=== PATIENT | female | born 1975 | race Caucasian/White ===

== ENCOUNTER 2017-05-13 05:25 | Outpatient (CLI) | payer BC ==
[~2017-05-13] VITALS: Ht 157.5 cm; Wt 71.9 kg
[2017-05-13 06:10] VITALS: Ht 157.5 cm; Wt 71.9 kg
[2017-05-13 06:11] VITALS: BP 122/77; PULSE 86
[2017-05-13 06:36] LABS: ADD UMIC YES; UR ASCORBIC ACID NEGATIVE (NEGATIVE); UR BILIRUBIN (Dip) NEGATIVE (NEGATIVE); UR BLOOD (Dip) 1+ mg/dL (NEGATIVE); UR CLARITY CLEAR (CLEAR); UR COLOR STRAW (YELLOW); UR GLUCOSE (Dip) NEGATIVE (NEGATIVE); UR KETONES (Dip) NEGATIVE (NEGATIVE); UR LEUKOCYTE ESTERASE (Dip) TRACE Leu/ul (NEGATIVE); UR NITRITE (Dip) NEGATIVE (NEGATIVE); UR RBC 0 /HPF (0-5); UR SPECIFIC GRAVITY (Dip) 1.006 (1.003-1.030); UR TOTAL PROTEIN (Dip) NEGATIVE (NEGATIVE); UR UROBILINOGEN (Dip) NEGATIVE (NEGATIVE)
--- NOTE | 2017-05-13 06:38 | RADRPT ---
PROCEDURE: Limited OB ultrasound CLINICAL INDICATION: Vaginal bleeding TECHNIQUE: Sonographic evaluation to assess the cervical length was performed. Transabdominal mina ging of the gravid uterus was performed. COMPARISON: No prior exam is available for comparison. FINDINGS: There is a single live intrauterine with cardiac activity, with a heart rate o f 148 bpm. position is cephalic. The placenta is anterior. The cervix is closed with a sarah beth th of 4.2 cm. IMPRESSION: The cervix is closed with a length of 4.2 cm. RPTAT: HH .Silva Tapia MD, MD Date Time Electronically viewed and signed by .Silva Tapia MD, on 05/13/2017 06:38 .G/
[2017-05-13 06:39] LABS: BASOPHIL # 0.1 10^3/ul (0.0-0.1); BASOPHILS % 0.5 % (0.0-2.0); EOSINOPHILS # 0.2 10^3/ul (0.0-0.5); EOSINOPHILS % 1.4 % (0.0-7.0); HEMATOCRIT 33.7 % (37.0-47.0); HEMOGLOBIN 11.6 g/dl (12.0-16.0); LYMPHOCYTES # 2.6 10^3/ul (0.8-2.9); LYMPHOCYTES % 24.7 % (15.0-51.0); MEAN CORPUSCULAR HEMOGLOBIN 31.4 pg (29.0-33.0); MEAN CORPUSCULAR HGB CONC 34.4 g/dl (32.0-37.0); MEAN CORPUSCULAR VOLUME 91.1 fl (82.0-101.0); MEAN PLATELET VOLUME 9.9 fl (7.4-10.4); MONOCYTE # 0.8 10^3/ul (0.3-0.9); MONOCYTES % 7.9 % (0.0-11.0); NEUTROPHILS % 63.1 % (39.0-77.0); PLATELET COUNT 250 10^3/UL (140-415); RED CELL DISTRIBUTION WIDTH 13.2 % (11.5-14.5); WHITE BLOOD COUNT 10.6 10^3/ul (4.8-10.8)
[2017-05-13] MEDS ORDERED: FERR325C PO (06:40)
[2017-05-13] MEDS ORDERED: PRENAT PO (06:40)
--- NOTE | 2017-05-13 08:22 | TRIAGE ---
OB Triage Datetime Report Generated by CPN: 05/13/2017 08:22 Datetime: 05/13/2017 07:30 Monitor Mode: External Resting Tone [place]: Relaxed Pain Assessment Pain Presence: None/Denies Datetime: 05/13/2017 07:00 Labor Evaluation Frequency: 0 Monitor Mode: External Duration (sec)2399: 0 Pattern: Normal: <= 5 Contractions in 10 Minutes Datetime: 05/13/2017 06:15 Labor Evaluation Frequency: NONE Monitor Mode: External Duration (sec)2399: NONE Pattern: Normal: <= 5 Contractions in 10 Minutes Resting Tone [place]: Relaxed Contraction Comments: ABD SOFT UPON PALPATION Heart Rate FHR Baseline Rate: 140 FHR Baseline Changes: No Baseline Change Variability: Moderate 6-25 bpm Comments: APPROPRIATE FOR GA Datetime: 05/13/2017 05:58 Stage of : OB Triage Datetime: 05/13/2017 05:44 Stage of : OB Triage Assessment Type: Triage Maternal Assessment Level of Consciousness: Fully Conscious Headache: Denies Blurred Vision: No Respiratory Effort: Unlabored; Regular Rhythm; Equal Expansion Nausea/Vomiting: Denies RUQ Epigastric Pain: Denies Facial Edema: None Fall Risk Assessment History of Falling: (0) No Secondary Diagnosis: (0) No Ambulatory Aid: (0) Bedrest/Nurse Assist IV Therapy: (0) No Gait: (0) Normal/Bedrest/Immobile Mental Status: (0) Oriented to Own Ability Fall Score: 0 Fall Risk Score Definition: No Risk: No action required Datetime: 05/13/2017 05:42 Time of Arrival: 05/13/2017 05:20 EGA: 21.1 Arrived By: Wheelchair Arrived From: Home Chief Complaint: SPOTTING (INTERCOURSE IN THE LAST 24HRS) Movement: Present Contractions: Denies/Absent Rupture of Membranes: Denies Vaginal Bleeding: Scant Vaginal Discharge: Denies Recent Sexual Intercouse: Yes Abdominal Trauma: Not Applicable Patient Complaints: Other Time Provider Notified: 05/13/2017 05:35 Provider Notified: BROCK Initial Plan: FHT, CALL OB Datetime: 05/13/2017 05:35 Stage of : OB Triage
--- NOTE | 2017-05-13 09:23 | PN ---
Triage Information Date/Time 05/13/2017 Reason for visit: Weeks of Gestation 21 weeks and 1 day /Para G 3P2 Diabetes: none Hypertention: none Additional information 41 years old female with IUP at 21 weeks and 1 days With care with Dr. Whiting presented to triage with complaint of postcoital bleeding. Patient denies any uterine contractions or decreased movement. Denies any other complaints. Her postcoital bleeding resolved when she was in triage. She denied any other episodes of bleeding after she presented observed in triage. Objective Vital Signs Date Time Temp Pulse Resp B/P Pulse Ox O2 Delivery O2 Flow Rate FiO2 05/13/17 06:11 98.3 86 122/77 Room Air Heart Rate: 120's Contractions: None Exam Const: [XOXOXO] Head: [Atraumatic] Abd: [Soft, non tender, non distended. Normal bowel sounds] Skin: [No petechiae or rashes] Back: [No midline or flank tenderness] Results/Medications Result Diagram: 05/13/17 0609 Results 24 hrs Laboratory Tests Test 05/13/17 05:52 05/13/17 06:09 Urine Color STRAW Urine Clarity CLEAR Urine pH 7.0 Urine Specific [place] 1.006 Urine Ketones NEGATIVE Urine Nitrite NEGATIVE Urine Bilirubin NEGATIVE Urine Urobilinogen NEGATIVE Urine Leukocyte Esterase TRACE A Urine Microscopic RBC 0 Urine Microscopic WBC 0 Urine Hemoglobin 1+ H Urine Glucose NEGATIVE Urine Total Protein NEGATIVE White Blood Count 10.6 Red Blood Count 3.70 L Hemoglobin 11.6 L Hematocrit 33.7 L Mean Corpuscular Volume 91.1 Mean Corpuscular Hemoglobin 31.4 Mean Corpuscular Hemoglobin Concent 34.4 Red Cell Distribution Width 13.2 Platelet Count 250 Mean Platelet Volume 9.9 Neutrophils % 63.1 Lymphocytes % 24.7 Monocytes % 7.9 Eosinophils % 1.4 Basophils % 0.5 Nucleated Red Blood Cells % 0.0 Neutrophils # (Manual) 6.7 Lymphocytes # 2.6 Monocytes # 0.8 Eosinophils # 0.2 Basophils # 0.1 Nucleated Red Blood Cells # 0.0 Imaging Results PROCEDURE: Limited OB ultrasound CLINICAL INDICATION: Vaginal bleeding TECHNIQUE: Sonographic evaluation to assess the cervical length was performed. Transabdominal imaging of the gravid uterus was performed. COMPARISON: No prior exam is available for comparison. FINDINGS: There is a single live intrauterine with cardiac activity, with a heart rate of 148 bpm. position is cephalic. The placenta is anterior. The cervix is closed with a length of 4.2 cm. IMPRESSION: The cervix is closed with a length of 4.2 cm. RPTAT: HH Disposition: Discharge Assessment/Plan IUP at 21 weeks and 1 dayPostcoital bleeding. Resolved. Patient had been observed in the triage for a couple hours. Ultrasound did not show any evidence of previa or abruption. Patient denies any symptoms and had no bleeding during observation. Cervix is long and closed. Patient will be discharged home with a strict labor precaution and follow-up with primary OB within 24-48 hours. Strict labor precautions discussed with the patient. YEISON LINDSAY MD May 13, 2017 09:23
== END 2017-05-13 08:05 | disposition home or self-care (01) ==
LOC: OBT 05:25 → L-D 05:25 → OBT 08:05
PROVIDERS: ATTEND Obstetrics & Gynecology
DX: O26.852 Spotting complicating pregnancy, second trimester (principal); Z3A.21 21 weeks gestation of pregnancy
CPT/HCPCS: 36415; 76817; 81001; 85025; 86850; 86900; 86901; Z7500; G0463

== ENCOUNTER 2017-08-29 05:18 | Inpatient (IN) | payer BC ==
[~2017-08-29] VITALS: Ht 157.5 cm; Wt 75.1 kg
[~2017-08-29 05:18] MED LIST: FERR325C PO; PRENAT PO
[2017-08-29 06:47] VITALS: Ht 157.5 cm; Wt 75.1 kg
[2017-08-29] MEDS ORDERED: BUTORPHANOL 2 MG INJ IV PRN (07:00)
[2017-08-29] MEDS ORDERED: MISOPROSTOL 200 MCG TAB PR PRN (07:00)
[2017-08-29] MEDS ORDERED: AMPICILLIN 2 GM/NS (PMX) 100 ML IV ONE (07:00)
[2017-08-29] MEDS ORDERED: IBUPROFEN 600 MG TAB PO PRN (07:00)
[2017-08-29] MEDS ORDERED: LIDOCAINE 1% (MPF) 30 ML INJ INJ PRN (07:00)
[2017-08-29] MEDS ORDERED: OXYCODONE/ACETAMINOPHEN (5/325) TAB PO PRN (07:00)
[2017-08-29] MEDS ORDERED: OXYTOCIN 30 UNITS/LR 500 ML IV SCH ×3 (07:00→18:40)
[2017-08-29] MEDS ORDERED: CARBOPROST 250 MCG INJ IM PRN (07:00)
[2017-08-29] MEDS ORDERED: METHYLERGONOVINE 0.2 MG INJ IM PRN (07:00)
[2017-08-29] MEDS ORDERED: OXYTOCIN 30 UNITS/LR 500 ML IV PRN (07:00)
[2017-08-29] MEDS: LACTATED RINGER'S 1,000 ML IV SCH ×3 (07:38→11:17)
[2017-08-29 07:59] LABS: BASOPHIL # 0.1 10^3/ul (0.0-0.1); BASOPHILS % 0.6 % (0.0-2.0); EOSINOPHILS # 0.1 10^3/ul (0.0-0.5); EOSINOPHILS % 0.9 % (0.0-7.0); HEMATOCRIT 35.8 % (37.0-47.0); HEMOGLOBIN 12.5 g/dl (12.0-16.0); LYMPHOCYTES # 2.1 10^3/ul (0.8-2.9); LYMPHOCYTES % 15.7 % (15.0-51.0); MEAN CORPUSCULAR HEMOGLOBIN 31.6 pg (29.0-33.0); MEAN CORPUSCULAR HGB CONC 34.9 g/dl (32.0-37.0); MEAN CORPUSCULAR VOLUME 90.6 fl (82.0-101.0); MEAN PLATELET VOLUME 10.3 fl (7.4-10.4); MONOCYTES % 7.3 % (0.0-11.0); NEUTROPHIL # 9.7 10^3/ul (1.6-7.5); NEUTROPHILS % 72.5 % (39.0-77.0); PLATELET COUNT 233 10^3/UL (140-415); RED BLOOD COUNT 3.95 10^6/ul (4.20-5.40); RED CELL DISTRIBUTION WIDTH 13.2 % (11.5-14.5); WHITE BLOOD COUNT 13.4 10^3/ul (4.8-10.8)
[2017-08-29 08:13] LABS: INR 0.91; PROTIME 12.3 Sec (11.9-14.9)
[2017-08-29 08:14] LABS: PARTIAL THROMBOPLASTIN TIME 25.7 Sec (25.0-35.0)
[2017-08-29 08:30] LABS: BARBITURATES Negative (NEGATIVE); BENZODIAZEPINES Negative (NEGATIVE); CANNABINOIDS Negative (NEGATIVE); COCAINE Negative (NEGATIVE); OPIATES Negative (NEGATIVE)
[2017-08-29] MEDS ORDERED: FENTAnyl 2MCG/ML-ROPIV 0.2% 100 ML ONE (08:42)
[2017-08-29] MEDS ORDERED: NALOXONE (0.4 MG/ML) INJ IV PRN (10:30)
[2017-08-29] MEDS ORDERED: ONDANSETRON 4 MG INJ IV PRN ×2 (10:30→19:00)
[2017-08-29] MEDS ORDERED: DIPHENHYDRAMINE 50 MG INJ IV PRN (10:30)
[2017-08-29] MEDS ORDERED: FENTAnyl 2MCG/ML-ROPIV 0.2% 100 ML BAG EPI SCH (10:30)
[2017-08-29] MEDS ORDERED: AMPICILLIN 1 GM/NS (PMX) 50 ML IV SCH (11:00)
--- NOTE | 2017-08-29 15:17 | LDN ---
Date/Time of Note Date/Time of Note DATE: 08/29/17 TIME: 15:14 Delivery Summary Normal spontaneous vaginal delivery of a baby boy from OA position shoulders delivered with no difficulty rest of the baby's body followed.. Cord clamped after stopped pulsation. Placenta is spontaneous expulsion inspected complete. Perineovaginal inspection no laceration. Estimated blood loss 250 cc. Weeks of Gestation 36 weeks 4 day Placenta Delivered: Spontaneously Meconium: none Episiotomy: No Laceration repair: None Anesthesia type: Epidural Sponge & Needle done & correct: Yes All needle counts correct: Yes Any foreign bodies felt in the: No Problems: Delivery Information Sex Infant Sex: male Apgars 1 Minute: 9 5 Minute: 9 Suctioning Nose & mouth suctioned at emiliano: Yes Delee suction performed: No Umbilical Cord Umbilical cord with: 3 Vessels Cord presentations: no nuchal cord Nuchal cord present X: 1 Cord Blood was obtained: Yes QUENTIN GARCIA MD Aug 29, 2017 15:17
--- NOTE | 2017-08-29 15:31 | HP ---
Date/Time of Note Date/Time of Note DATE: 08/29/17 TIME: 15:17 OB - History Hx of Present Free Text/Dictation 41 years female EDC September 22, 2017 admitted at 36 weeks and 4 days to the hospital with the complaint of premature rupture of membrane and early contractions, requiring labor, augmentation pelvic examination on admission cervix 4 cm dilated 90% effaced vertex at -1 station, heart category 1 Chief Complaint: Premature rupture of membrane early labor Estimated Due Date: Aug 22, 2017 : 3 Para: 2 Care: Good Care Ultrasounds: Normal mid trimester US Obstetrical Complications: None Medical Complications: None Past Family/Social History * Past Medical, Surgical, Family and Obstetric Histories reviewed from chart. Rubella: immune RPR/VDRL: Negative GBS Status: Negative HBsAG: Negative OB Admission Exam Physical Exam HEENT: WNL Lungs: Clear, Equal Abdomen: WNL Extremities: Normal Cervical Dilatation: 4cm Effacement: 100% Station: -1 Membranes: Ruptured Amniotic Fluid: Clear Accelerations: Accelerations Present Decelerations: No Decelerations Varibility: Moderate Contractions on Admission: >10 Minutes Apart Intensity: Mild Last 72 hours Lab Results CBC & BMP 08/29/17 06:00 OB Assessment/Plan Reason for admission: other (Premature rupture of membrane early labor) Other plan: 41 years old female EDC September 22 admitted with premature rupture of membrane early labor required labor augmentation with Pitocin IV drip. QUENTIN GARCIA MD Aug 29, 2017 15:28
[2017-08-29 18:35] VITALS: BP 110/62; PULSE 90; RESP 18
[2017-08-29] MEDS ORDERED: WITCH HAZEL/GLYCERIN PAD PR PRN (19:00)
[2017-08-29] MEDS ORDERED: ACETAMINOPHEN 325 MG TAB PO PRN (19:00)
[2017-08-29] MEDS ORDERED: DIBUCAINE 1% 30 GM OINT TOP PRN (19:00)
[2017-08-29] MEDS ORDERED: BENZOCAINE 20% 56 ML SPRAY TOP PRN (19:00)
[2017-08-29] MEDS ORDERED: OXYCODONE/ASPIRIN (4.88/325) TAB PO PRN ×2 (19:00)
[2017-08-29] MEDS ORDERED: LANOLIN 7 GM TUBE TOP PRN (19:00)
[2017-08-29] MEDS ORDERED: HYDROCODONE/APAP (5/325) TAB PO PRN ×2 (19:00)
[2017-08-29 19:30] VITALS: BP 96/57; PULSE 84; RESP 17
[2017-08-29] MEDS: SENNA/DOCUSATE NA (8.6MG/50MG) TAB PO SCH (21:47)
[2017-08-29] MEDS: IBUPROFEN 600 MG TAB PO SCH (23:22)
[2017-08-29 23:30] VITALS: BP 99/56; PULSE 87; RESP 17
[2017-08-30 03:50] VITALS: BP 93/59; PULSE 78; RESP 18
[2017-08-30] MEDS: IBUPROFEN 600 MG TAB PO SCH ×4 (05:45→23:54)
[2017-08-30 08:00] VITALS: BP 105/64; PULSE 87; RESP 19
[2017-08-30] MEDS: SENNA/DOCUSATE NA (8.6MG/50MG) TAB PO SCH ×2 (08:28→21:00)
[2017-08-30 09:15] LABS: BASOPHIL # 0.1 10^3/ul (0.0-0.1); BASOPHILS % 0.4 % (0.0-2.0); EOSINOPHILS % 0.2 % (0.0-7.0); HEMATOCRIT 33.1 % (37.0-47.0); HEMOGLOBIN 11.6 g/dl (12.0-16.0); LYMPHOCYTES # 2.6 10^3/ul (0.8-2.9); LYMPHOCYTES % 15.6 % (15.0-51.0); MEAN CORPUSCULAR HEMOGLOBIN 32.7 pg (29.0-33.0); MEAN CORPUSCULAR VOLUME 93.2 fl (82.0-101.0); MEAN PLATELET VOLUME 9.9 fl (7.4-10.4); NEUTROPHIL # 12.6 10^3/ul (1.6-7.5); NEUTROPHILS % 75.6 % (39.0-77.0); PLATELET COUNT 212 10^3/UL (140-415); RED BLOOD COUNT 3.55 10^6/ul (4.20-5.40); RED CELL DISTRIBUTION WIDTH 13.4 % (11.5-14.5); WHITE BLOOD COUNT 16.6 10^3/ul (4.8-10.8)
--- NOTE | 2017-08-30 11:50 | QN ---
Documentation Comment Post normal vaginal delivery day 1 Afebrile, vital signs are stable. Abdomen soft. Uterus firm. Lochia normal. Extremity normal. QUENTIN GARCIA MD Aug 30, 2017 11:50
[2017-08-30 15:45] VITALS: BP 93/70; RESP 14
[2017-08-30 16:00] VITALS: BP 93/70; PULSE 85; RESP 16
[2017-08-30 19:30] VITALS: BP 127/71; PULSE 80; RESP 19
[2017-08-31] MEDS: IBUPROFEN 600 MG TAB PO SCH ×3 (05:38→17:25)
[2017-08-31 08:00] VITALS: BP 121/79; PULSE 71; RESP 18
[2017-08-31] MEDS: SENNA/DOCUSATE NA (8.6MG/50MG) TAB PO SCH (09:00)
[2017-08-31] MEDS ORDERED: MEASLES,MUMPS,RUBELLA VACCINE INJ SC* ONE (09:00)
--- NOTE | 2017-08-31 13:13 | DS ---
Date/Time of Note Date/Time of Note DATE: 08/31/17 TIME: 13:11 Discharge Summary Admission/Discharge Info Admit Date/Time Aug 29, 2017 at 07:00 Discharge Date/Time August 31, 2017 at 1300 Discharge Diagnosis Post normal vaginal delivery day 2 Patient Condition: Good Procedures Normal vaginal delivery Hx of Present Illness delivery Hospital Course Satisfactory recovery uneventful Home Meds Reported Medications Ferrous Sulfate (Iron) 325 Mg Capsule.er, 325 MG PO, CAP 05/13/17 Multivit/Min/Fol Ac/Iron/Pren* ( S*) 1 Tab Tab, 1 TAB PO DAILY, TAB 05/13/17 Follow-up Plan instruction given recommended to make appointment to be seen 2 weeks Primary Care Provider [facility] Time spent on discharge: < 30 minutes QUENTIN GARCIA MD Aug 31, 2017 13:13
[2017-08-31 16:07] VITALS: BP 105/52; PULSE 75; RESP 16
== END 2017-08-31 18:20 | disposition home or self-care (01) | DRG 775 ==
LOC: OBT 05:18 → L-D 05:19 → OBT 07:13 → PP1 18:57
PROVIDERS: ADMIT Obstetrics & Gynecology; ATTEND Obstetrics & Gynecology
PROC: 10E0XZZ Delivery of Products of Conception, External Approach (ICD-10-PCS; principal; 2017-08-29)
DX: O60.14X0 Preterm labor third trimester with preterm delivery third trimester, not applicable or unspecified (principal); Z37.0 Single live birth; Z3A.36 36 weeks gestation of pregnancy
CPT/HCPCS: 62319; 80307; 84112; 85025; 85610; 85730; 86592; 86762; 86850; 86900; 86901; 87340; A4310; G0463; J0290; J2590; J3010; J7120